=== PATIENT | male | born 1985 | race Caucasian/White ===

== ENCOUNTER 2018-02-12 13:06 | Emergency (ER) | payer SELFPAY ==
[~2018-02-12] VITALS: Ht 182.9 cm; Wt 83.1 kg
[2018-02-12 13:12] VITALS: BP 129/75
[2018-02-12] MEDS ORDERED: HYDROCODONE/APAP 5/325MG 1 EACH TABLET PO ONE (13:30)
[2018-02-12] MEDS ORDERED: HYDROCODONE/APAP 5/325MG 1 EACH TABLET ONE (13:46)
== END 2018-02-12 13:55 | disposition home or self-care (01) ==
LOC: ER 13:08
DX: K02.9 Dental caries, unspecified (principal); K08.89 Other specified disorders of teeth and supporting structures; F17.200 Nicotine dependence, unspecified, uncomplicated; Z90.89 Acquired absence of other organs
CPT/HCPCS: A4606; Z7502; Z7610